=== PATIENT | male | born 1990 | race Two or more races ===

== ENCOUNTER → 2018-10-19 | Outpatient (CLI) | payer MEDICAID, MEDICARE | END | disposition home or self-care (01) | LOC: LAB 16:00 | PROVIDERS: ATTEND Physician Assistant | DX: N39.0 Urinary tract infection, site not specified (principal) | CPT/HCPCS: 87086 ==

== ENCOUNTER 2020-11-04 15:44 | Emergency (ER) | payer MEDICARE, MEDICAID, OTHER ==
[~2020-11-04] VITALS: Ht 182.9 cm; Wt 99.8 kg
[2020-11-04 15:48] VITALS: BP 137/79
== END 2020-11-04 17:39 | disposition home or self-care (01) ==
LOC: ER 15:45
DX: S16.1XXA Strain of muscle, fascia and tendon at neck level, initial encounter (principal); S39.012A Strain of muscle, fascia and tendon of lower back, initial encounter; V43.52XA Car driver injured in collision with other type car in traffic accident, initial encounter; Y93.89 Activity, other specified; Y92.488 Other paved roadways as the place of occurrence of the external cause; Y99.8 Other external cause status
CPT/HCPCS: 72040; 72100